=== PATIENT | male | born 1990 | race Two or more races ===

== ENCOUNTER 2019-08-25 17:11 | Inpatient (IN) | payer OTHER ==
[~2019-08-25] VITALS: Ht 175.3 cm; Wt 105.0 kg
[2019-08-25 17:29] LABS: BASO # 0.1 x10^3/uL (0.0-0.2); BASO % 1 % (0-3); EOS # 0.1 x10^3/uL (0.0-0.7); EOS % 2 % (0-3); HEMATOCRIT 49.7 % (39.0-53.0); LYMPH # 1.6 x10^3/uL (1.0-4.8); LYMPH % 22 % (24-48); MEAN CORPUSCULAR HEMOGLOBIN 32 pg (25-35); MEAN CORPUSCULAR HGB CONC 34 g/dL (31-37); MEAN CORPUSCULAR VOLUME 93 fL (79-100); MONO # 0.7 x10^3/uL (0.0-1.1); MONO % 9 % (0-9); NEUT # 4.9 x10^3/uL (1.8-7.7); NEUT % 66 % (31-73); PLATELET COUNT 262 x10^3/uL (140-400); RED BLOOD COUNT 5.36 x10^6/uL (4.30-5.70); RED CELL DISTRIBUTION WIDTH 13.2 % (11.5-14.5); WHITE BLOOD COUNT 7.5 x10^3/uL (4.0-11.0)
[2019-08-25] MEDS ORDERED: IOHEXOL 300 MG/ML 100ML VIAL. IV ONE (17:30)
[2019-08-25 17:31] LABS: BILIRUBIN,URINE NEGATIVE (NEG); CLARITY,URINE CLEAR; COLOR,URINE YELLOW; NITRITE,URINE NEGATIVE (NEG); PROTEIN,URINE NEGATIVE (NEG-TRACE); UROBILINOGEN,URINE 0.2 mg/dL (0.2 mg/dL)
[2019-08-25 17:37] LABS: CALCIUM 9.1 mg/dL (8.5-10.1); CREATININE 1.1 mg/dL (0.7-1.3); GFR 80.3; POTASSIUM 3.7 mmol/L (3.5-5.1)
[2019-08-25 17:43] LABS: ALBUMIN 4.2 g/dL (3.4-5.0); ALBUMIN/GLOBULIN RATIO 1.2 (1.0-1.7); TOTAL BILIRUBIN 0.2 mg/dL (0.2-1.0); TOTAL PROTEIN 7.7 g/dL (6.4-8.2)
[2019-08-25] MEDS ORDERED: PROPOFOL 10 MG/ML (20ML) VIAL. IV ONE (17:45)
[2019-08-25 17:50] LABS: BACTERIA,URINE 0 /HPF (0-FEW); RBC,URINE 0 /HPF (0-2); WBC,URINE 0 /HPF (0-4)
--- NOTE | 2019-08-25 17:55 | RAD ---
Exam: Chest one view INDICATION: Intubation TECHNIQUE: Frontal view of the chest Comparisons: None FINDINGS: Endotracheal tube with tip approximately 4 cm above the owen. Enteric tube traverses below the diaphragm with tip in the left upper quadrant likely within the stomach. Heart is enlarged. Pulmonary vessels are prominent. The lung and pleural spaces are clear. IMPRESSION: Lines and tubes described above. Electronically signed by: Mavis Bolanos MD (08/25/2019 5:52 PM) [id number]
[2019-08-25] MEDS ORDERED: MIDAZOLAM HCL/PF 5 MG/5 ML VIAL. ONE ×2 (17:58→19:22)
[2019-08-25] MEDS ORDERED: ETOMIDATE 20 MG/10 ML VIAL. IV ONE (17:59)
[2019-08-25] MEDS ORDERED: SUCCINYLCHOLINE 200 MG/10 ML VIAL. ONE (17:59)
[2019-08-25] MEDS ORDERED: CONTRAST GIVEN. MC PRN (18:00)
[2019-08-25 18:13] LABS: BASE EXCESS ABG -8 mmol/L (-3-3); FIO2 ABG 50; HCO3 ABG 19 mmol/L (21-28); PCO2 ABG 43 mmHg (35-46); PO2 ABG 130 mmHg (85-108); SAT O2 ABG 98 % (92-99)
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
[2019-08-25] MEDS ORDERED: PROPOFOL 10 MG/ML (50ML) VIAL. IV ONE (18:15)
[2019-08-25 18:16] LABS: AMPHETAMINE/METHAMPHETAMINE NEG (NEG); BARBITURATES NEG (NEG); BENZODIAZEPINES NEG (NEG); CANNABINOIDS NEG (NEG); COCAINE NEG (NEG); METHADONE NEG (NEG); OPIATES NEG (NEG); PHENCYCLIDINE NEG (NEG)
--- NOTE | 2019-08-25 18:36 | RAD ---
Exam: CT of chest, abdomen and pelvis with contrast INDICATION: Trauma TECHNIQUE: Sequential axial images through the chest, abdomen and pelvis. obtained following the administration of 75 mL of Omni 300 IV contrast. Sagittal and coronal reformatted images were reconstructed from the axial data and reviewed. Comparisons: None FINDINGS: Visualized portions of the thyroid are unremarkable. No enlarged mediastinal lymph nodes. Heart size is normal. No pericardial effusion. Thoracic aorta has a normal course and caliber. Pulmonary artery is not enlarged. Endotracheal tube with tip in the trachea. Airways are patent. There is consolidative changes in the lower lobes bilaterally in the dependent portion the lungs. No suspicious lung nodules are identified. No pleural effusion or thickening. Liver, spleen, pancreas, gallbladder and adrenals are unremarkable. Kidneys demonstrate symmetric enhancement. No perinephric inflammation or hydronephrosis. No renal or ureteral calculi are identified. Bladder is decompressed not well evaluated. Garcia balloon is noted within the bladder. Prostate is not enlarged. Large and small bowel are unremarkable. Appendix is is not identified. No free intra-abdominal air or fluid. No obstruction. Abdominal aorta has a normal course and caliber. Abdominal vasculature is patent. No enlarged intra-abdominal lymph nodes are identified. No suspicious osseous lesions or acute fractures. IMPRESSION: 1. Consolidative changes at the dependent portion of the lower lungs bilaterally. Correlate for aspiration. 2. No sequela of acute traumatic injury identified in the chest, abdomen and pelvis. Exposure: One or more of the following in the visualized dose reduction techniques were utilized for this examination: 1. Automated exposure control 2. Adjustment of the MA and/or KV according to patient size 3. Use of iterative of reconstructive technique Electronically signed by: Mavis Bolanos MD (08/25/2019 6:33 PM) [id number]
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
[2019-08-25] MEDS ORDERED: MIDAZOLAM HCL/PF 5 MG/5 ML VIAL. IV ONE (19:24)
[2019-08-25 20:28] LABS: BASE EXCESS ABG -6 mmol/L (-3-3); HCO3 ABG 20 mmol/L (21-28); PCO2 ABG 41 mmHg (35-46); PO2 ABG 169 mmHg (85-108)
[2019-08-25 20:29] LABS: FIO2 ABG 50; SAT O2 ABG 99 % (92-99)
[2019-08-25] MEDS ORDERED: SURGICEL HEMOSTAT 4X8 EACH. TP ONE (20:30)
[2019-08-25] MEDS ORDERED: LIDOCAINE 1%/EPI 1:100,000 20 ML VIAL. INJ ONE (20:30)
[2019-08-25 20:31] LABS: CORRECTED PCO2 ABG 41 mmHg; CORRECTED PH ABG 7.31; CORRECTED PO2 ABG 169 mmHg
[2019-08-25] MEDS ORDERED: NEOMY/BACITR/POLYMYXIN OINT PACKET. TP ONE (21:00)
[2019-08-25] MEDS ORDERED: PROPOFOL 100 ML IV ONE (21:27)
[2019-08-25 21:30] VITALS: BP 146/85
[2019-08-25] MEDS ORDERED: IV NORMAL SALINE 1000ML BAG 1,000 ML IV ONE ×2 (21:30→21:45)
[2019-08-25 21:45] VITALS: BP 146/73
[2019-08-25 22:00] VITALS: BP 149/86
[2019-08-25 22:15] VITALS: BP 147/75
[2019-08-25 22:30] VITALS: BP 157/76
[2019-08-25] MEDS ORDERED: diphenhydrAMINE 50 MG/ML VIAL IVP PRN (22:45)
[2019-08-25] MEDS ORDERED: MIDAZOLAM 100mg/100ml NS BAG 100 ML IV PRN (22:45)
[2019-08-25] MEDS ORDERED: fentaNYL PF VIAL 100 MCG/2 ML VIAL IV PRN ×2 (22:45)
[2019-08-25 23:00] VITALS: BP 145/65
[2019-08-26] VITALS (24 sets, daily range): BP systolic 111–176; BP diastolic 47–99
[2019-08-26] MEDS: PROPOFOL 100 ML IV PRN ×3 (00:27→08:58)
--- NOTE | 2019-08-26 06:19 | NUR ---
Pt admitted to ICU room 102 from ED. Pt. arrived to unit with soft wrist restraints in place from ED, sedated on propofol. Wakes occasionally from sedation, aggressively attempting to remove ETT. Paged Dr. Baird informed of restraints in place, order received. Throughout shift pt. became more coherent upon waking from sedation but continues to reach toward ETT. Pt has significant amount of sediment in urine, points toward Garcia when awake, clamped and flushed catheter, flushes easily with return of flush after unclamping.
[2019-08-26 08:07] LABS: BASE EXCESS ABG -2 mmol/L (-3-3); HCO3 ABG 24 mmol/L (21-28); PCO2 ABG 46 mmHg (35-46); PO2 ABG 126 mmHg (85-108); SAT O2 ABG 98 % (92-99)
[2019-08-26 08:21] LABS: FIO2 ABG 50%
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
[2019-08-26] MEDS: IPRATRPIUM/ALBUTEROL 0.5/2.5MG 3 ML NEBU. NEB SCH ×4 (10:00→20:00)
[2019-08-26] MEDS ORDERED: hydrALAZINE 20 MG/ML VIAL. IVP PRN (10:00)
[2019-08-26] MEDS ORDERED: PIP/TAZO PER PHARMACY MC PRN (10:00)
[2019-08-26] MEDS: PIPERACILLIN/TAZOBACTAM 3.375 GM in IV NORMAL SALINE 50ML 50 ML IV SCH ×3 (10:13→23:43)
[2019-08-26] MEDS ORDERED: HALOPERIDOL LACTATE 5 MG/ML VIAL. IVP PRN (10:15)
[2019-08-26] MEDS: MULTIVIT INFUSN,ADULT 4,VIT K 10 ML, THIAMINE INJ 100 MG, FOLIC ACID INJ 1 MG in IV NOR... IV SCH (10:31)
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
[2019-08-27] VITALS (8 sets, daily range): BP systolic 121–136; BP diastolic 59–74
[2019-08-27] MEDS: PIPERACILLIN/TAZOBACTAM 3.375 GM in IV NORMAL SALINE 50ML 50 ML IV SCH (06:12)
[2019-08-27] MEDS: IPRATRPIUM/ALBUTEROL 0.5/2.5MG 3 ML NEBU. NEB SCH (07:37)
[2019-08-27] MEDS: MULTIVIT INFUSN,ADULT 4,VIT K 10 ML, THIAMINE INJ 100 MG, FOLIC ACID INJ 1 MG in IV NOR... IV SCH (08:40)
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
--- NOTE | 2019-08-27 11:25 | NUR ---
SS following for discharge planning. SS reviewed pt chart and discussed with pt RN. Pt is from home and is currently on room air. Pt on IV Zosyn. SS will continue to follow for discharge planning.
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
--- NOTE | 2019-08-27 11:49 | NUR ---
3 removed jewelry pieces in container as well as shoes,socks, cut off brad shorts,cut off underwear, and no shirt home christ Pickens
--- NOTE | 2019-08-27 15:39 | NUR ---
Wound Care Pt discharged prior to arrival of WC team.
--- NOTE | 2019-08-28 06:54 | EKG ---
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
== END 2019-08-27 11:15 | disposition home or self-care (01) | DRG 208 ==
LOC: ER 17:11 → 1 WEST ICU 19:10
PROVIDERS: ADMIT Internal Medicine; ATTEND Internal Medicine
PROC: 5A1935Z Respiratory Ventilation, Less than 24 Consecutive Hours (ICD-10-PCS; principal; 2019-08-25)
PROC: 0BH17EZ Insertion of Endotracheal Airway into Trachea, Via Natural or Artificial Opening (ICD-10-PCS; 2019-08-25)
PROC: 0HQ0XZZ Repair Scalp Skin, External Approach (ICD-10-PCS; 2019-08-25)
PROC: 0HQ1XZZ Repair Face Skin, External Approach (ICD-10-PCS; 2019-08-25)
DX: J69.0 Pneumonitis due to inhalation of food and vomit (principal); G92 Toxic encephalopathy; J96.01 Acute respiratory failure with hypoxia; S06.0X9A Concussion with loss of consciousness of unspecified duration, initial encounter; E66.9 Obesity, unspecified; F10.229 Alcohol dependence with intoxication, unspecified; I11.9 Hypertensive heart disease without heart failure; S01.01XA Laceration without foreign body of scalp, initial encounter; S01.111A Laceration without foreign body of right eyelid and periocular area, initial encounter; S01.81XA Laceration without foreign body of other part of head, initial encounter; V89.2XXA Person injured in unspecified motor-vehicle accident, traffic, initial encounter; Y92.410 Unspecified street and highway as the place of occurrence of the external cause; Y90.8 Blood alcohol level of 240 mg/100 ml or more; Z68.34 Body mass index [BMI] 34.0-34.9, adult; Y93.89 Activity, other specified; Y92.89 Other specified places as the place of occurrence of the external cause; Y99.8 Other external cause status
CPT/HCPCS: 12013; 31500; 36415; 36600; 51702; 70450; 70486; 71045; 71260; 72125; 74177; 80053; 80307; 81001; 82805; 83690; 85025; 86850; 86900; 86901; 93005; 94002; 94003; 94640; G0480; J0360; J1630; J2250; J2543; J2704; J3010; J3411; J3490; J7030; Q9967; 99291-25; G0378